=== PATIENT | female | born 1950 | race Caucasian/White ===

== ENCOUNTER → 2021-04-13 | Outpatient (CLI) | payer MEDICARE ==
--- NOTE | 2021-04-15 18:10 | SLEEPCENT ---
DATE: 04/13/2021 ORDERED BY: FRIDA Petersen Nocturnal polysomnography was performed for evaluation of sleep physiology in this patient with a history of excessive somnolence and nonrestorative sleep. Eight hours and 31 minutes of data were reviewed. There were 359 minutes of sleep identified. Sleep latency was short at 5 minutes. REM sleep was delayed at 367 minutes. Sleep architecture showed fragmentation and poor progression. There was one REM cycle noted. Overall sleep efficiency was 71.4%. The electrocardiogram showed a sinus rhythm with an average heart rate of 54 beats per minute. Rate ranged 40-60. EEG showed normal waveforms for wake and sleep. There were 79 respiratory events identified of 10 seconds in duration or greater for an apnea-hypopnea index of 13.2. The events were obstructive, more significant in stage REM but not exclusive to that stage and not associated with a specific sleep posture. Arousals from respiratory events occurred only 2.8 times per hour, but oxygen desaturations were seen into the low 70s. There was also some significant limb activity. Limb movement arousal index was 7.7. IMPRESSIONS: Obstructive sleep apnea syndrome (G47.33). Apnea-hypopnea index 13.2. RECOMMENDATION: The patient should be encouraged to return to [facility] for [facility]. In the interim, alcohol and sedative avoidance should be practiced and caution exercised during the operation of motor vehicles. cc: Lashawn Rosario MD
== END ==
LOC: M SLEEP 20:00
PROVIDERS: ATTEND Nurse Practitioner Family
DX: G47.33 Obstructive sleep apnea (adult) (pediatric) (principal)

== ENCOUNTER → 2021-05-23 | Outpatient (CLI) | payer MEDICARE | LOC: M SLEEP 20:00 | PROVIDERS: ATTEND Nurse Practitioner Family | DX: G47.33 Obstructive sleep apnea (adult) (pediatric) (principal) ==

== ENCOUNTER → 2021-07-05 | Outpatient (REF) | payer MEDICARE | LOC: M LAB REF 14:26 | PROVIDERS: ATTEND Nurse Practitioner Family | DX: D23.5 Other benign neoplasm of skin of trunk (principal) | CPT/HCPCS: 11102; 17000; 88305; G0463 ==

== ENCOUNTER → 2022-06-19 | Outpatient (REF) | payer MEDICARE | LOC: M SFHCDERM 13:49 | PROVIDERS: ATTEND Nurse Practitioner Family | DX: L82.0 Inflamed seborrheic keratosis (principal) ==